=== PATIENT | male | born 1930 | race Hispanic/Latino ===

== ENCOUNTER 2016-08-13 11:19 | Day surgery (SDC) | payer MEDICARE ==
[2016-08-13] MEDS ORDERED: NACL 0.9% 1000 ML 1,000 ML IV SCH (12:00)
[2016-08-13] MEDS ORDERED: WATER FOR IRRIG STERILE IR ONE (12:24)
[2016-08-13] MEDS ORDERED: AMIDATE IV ONE (13:09)
[2016-08-13] MEDS ORDERED: DIPRIVAN 10 MG/ML IV ONE ×3 (13:09)
--- NOTE | 2016-08-13 13:10 | Anesthesia Day of Surgery ---
Anesthesia Day of Surgery - Day of Surgery Patient Examined: Yes Patient H&P Reviewed: Yes Patient is NPO: Yes
--- NOTE | 2016-08-13 13:10 | Anesthesia Consultation ---
Anesthesia Consult and Med Hx Date of service: 08/13/16 - Airway Anesthetic Teeth Evaluation: Edentulous ROM Head & Neck: Adequate Mental/Hyoid Distance: Adequate Mallampati Class: Class II Intubation Access Assessment: Probably Good - Pulmonary Exam CTA: Yes - Cardiac Exam Cardiac Exam: RRR - Pre-Operative Health Status ASA Pre-Surgery Classification: ASA3 Proposed Anesthetic Plan: MAC - Pulmonary Hx Smoking: No Hx Asthma: No - Cardiovascular System Hx Hypertension: Yes Hx Heart Attack/AMI: No - Central Nervous System Hx Seizures: No CVA: No - Gastrointestinal Hx Gastroesophageal Reflux Disease: Yes - Other Systems Hx Cancer: Yes (colon ca sp colon resection, stomach ca) - Additional Comments Anesthesia Medical History Comments: NAC
--- NOTE | 2016-08-13 14:06 | Operative Report ---
Operative Report Operative Report: Date of procedure: 08/13/2016 Procedure: Esophagogastroduodenoscopy with multiple mucosal biopsies Attending physician: Carson Cardenas MD Web Content Editor: Carson Cardenas MD Indication: Patient is an 85-year-old male who presents history of dyspepsia with bloating and intestinal gas. 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 Patient definitely has a change in his symptomatology and also recently he has had blood in his stool. This procedure therefore is done to assess patient in hopes of directing treatment based on the findings. Consent: Informed consent was obtained after advising the patient and family regarding nature of this procedure, its indications, potential benefits as well as possible complications including but not limited to bleeding perforation and adverse reaction to medication, infection as well as other cardiopulmonary complications. An informed written and verbal consent was then obtained after due opportunity was provided for questions and answers. Monitoring: Patient was monitored continuously with pulse oximetry and electrocardiographic recordings as well as blood pressure recordings. Vital signs remained stable throughout this procedure with no untoward events. Preoperative assessment: Patient was assessed immediately prior to this procedure for capacity to tolerate monitored anesthesia care and moderate sedation as well as general anesthesia. Patient's ASA classification is 2, Mallampati class is 2, Hyomental distance is 3. Instrument: tritruen video endoscope Medications: Propofol, given intravenously in divided doses for details please refer to anesthesia records. Description of procedure: Patient was placed in the left lateral decubitus position after achieving sedation, the endoscope was introduced into the esophagus under direct vision. It was then advanced beyond the esophagus into the stomach and then beyond the stomach into the duodenum and to the second portion of the duodenum. It was subsequently withdrawn with careful inspection of all mucosal surfaces with the following findings. Findings: Patient had erosive esophagitis involving the distal esophagus. There was a 2-3 cm sliding hiatal hernia seen on entering to the stomach. There was mild erythema in the gastric antrum biopsy obtained to rule out gastritis. Beginning in the distal part of the duodenal bulb and extending to the second portion of the duodenum, there was a semicircumferential luminally occluding ulcerated mass seen. 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 Several biopsies of the mass which was friable were obtained for histopathology. Impression: Mild erosive esophagitis. Hiatal hernia. Next and gastric antral erythema. Ulcerated duodenal mass status post biopsies Plan: Follow pathology report. Obtain CT scan of the abdomen and pelvis. Direct additional treatment based on the pathology report Treat patient with proton pump inhibitors because of the erosive esophagitis.
--- NOTE | 2016-08-13 14:10 | Operative Report ---
Operative Report Operative Report: Date of procedure: 08/13/2016 Procedure: Colonoscopy Attending physician: Carson Cardenas MD Teletypewriter Operator: Carson Cardenas MD Indication: Patient is an 85-year-old male who presented for surveillance colonoscopy. He has a past history of colon cancer his last colonoscopy was 3 years ago. Patient recently presented with a history of recurrent hematochezia. This colonoscopy therefore is done to assess patient in hopes of directing treatment based on the findings. Consent: Informed consent was obtained after advising the patient and family regarding nature of this procedure, its indications, potential benefits as well as possible complications including but not limited to bleeding perforation and adverse reaction to medication, infection as well as other cardiopulmonary complications. An informed written and verbal consent was then obtained after due opportunity was provided for questions and answers. Monitoring: Patient was monitored continuously with pulse oximetry and electrocardiographic recordings as well as blood pressure recordings. Vital signs remained stable throughout this procedure with no untoward events. Preoperative assessment: Patient was assessed immediately prior to this procedure for capacity to tolerate monitored anesthesia care and moderate sedation as well as general anesthesia. Patient's ASA classification is 2, Mallampati class is 2, Hyomental distance is 33]. Instrument: [employer] videocolonoscope Medications: Propofol, given intravenously in divided doses for details please refer to anesthesia records. Description of procedure: Patient was placed in the left lateral decubitus position after achieving sedation, a digital rectal examination was performed following which the colonoscope was introduced into the anal verge and advanced to the ileocolonic anastomosis. The colonoscope was subsequently withdrawn with careful inspection of all mucosal surfaces. Patient tolerated this procedure well and was subsequently taken to the recovery room. The following findings were noted. Findings: Patient had mild diverticulosis involving the sigmoid colon. The ileocolonic anastomosis was normal. The rest of the colon was normal. On the retroflex view at the anal verge, patient had internal hemorrhoids. Impression: Mild diverticulosis Internal hemorrhoids. Plan: Continue high-fiber diet. Patient has a duodenal mass that was biopsied noted on upper endoscopy and the pathology report will be followed and treatment directed based on the pathology report.
--- NOTE | 2016-08-13 14:10 | Discharge Summary ---
Short Stay Discharge Plan Activity: advance as tolerated Weight Bearing Status: Weight Bear as Tolerated Diet: regular
[2016-08-13 14:11] VITALS: BP 126/80
--- NOTE | 2016-08-13 15:15 | Post Anesthesia Evaluation ---
- Post Anesthesia Evaluation Patient Participated: Yes Airway Patent: Yes Stable Respiratory Function: Yes Temp > 96.8F: Yes Pain Manageable: Yes Adequeate Hydration: Yes Anesthesia Complications: No Block Receding Appropriately: Not Applicable
== END 2016-08-13 11:20 | disposition home or self-care (01) ==
LOC: GIO 11:19
PROVIDERS: ATTEND Internal Medicine Gastroenterology
DX: K29.50 Unspecified chronic gastritis without bleeding (principal); K64.8 Other hemorrhoids; K57.30 Diverticulosis of large intestine without perforation or abscess without bleeding; K20.8 Other esophagitis; K44.9 Diaphragmatic hernia without obstruction or gangrene; K26.9 Duodenal ulcer, unspecified as acute or chronic, without hemorrhage or perforation; I10 Essential (primary) hypertension; Z98.0 Intestinal bypass and anastomosis status; Z85.038 Personal history of other malignant neoplasm of large intestine; Z86.010 Personal history of colon polyps; Z90.49 Acquired absence of other specified parts of digestive tract; Z85.028 Personal history of other malignant neoplasm of stomach; Z98.890 Other specified postprocedural states; Z80.42 Family history of malignant neoplasm of prostate
CPT/HCPCS: 43239; 88305; 88341; 88342; G0105; J2704; J7030